=== PATIENT | female | born 1975 | race Caucasian/White ===

== ENCOUNTER → 2018-11-22 | Outpatient (CLI) | payer OTHER ==
[~2018-11-22] MED LIST: EVE1000C3 PO; FLAX10004 PO; GINK120T3 PO; GLUC1TAB91 PO; GUAI12009 PO; IBUP1TAB11 PO; MULT-672 PO; NAPR220C2 PO; TURM1POW PO; [UNRECOGNIZED DRUG - OTHER] PO; [UNRECOGNIZED DRUG - OTHER] PO
[2018-11-22 14:56] LABS: BASOPHILS # (AUTO) 0.01 x10^3/uL (0-0.1); BASOPHILS % (AUTO) 0 % (0-1); EOSINOPHILS # (AUTO) 0.09 x10^3/uL (0-0.4); EOSINOPHILS % (AUTO) 2 % (1-7); LYMPHOCYTES # (AUTO) 1.59 x10^3/uL (1-3.4); LYMPHOCYTES % (AUTO) 28 % (22-44); MD NO; MEAN CORPUSCULAR HGB CONC 33.2 g/dL (32.4-35.8); MEAN CORPUSCULAR VOLUME 90.5 fL (80-100); MONOCYTES # (AUTO) 0.45 x10^3/uL (0.2-0.8); MONOCYTES % (AUTO) 8 % (2-9); NEUTROPHILS % (AUTO) 63 % (42-75); PLATELET COUNT 264 x10^3/uL (130-400); RED BLOOD COUNT 4.88 x10^6/uL (3.82-5.3); RED CELL DISTRIBUTION WIDTH 13.5 % (9.6-15.2)
== END | disposition home or self-care (01) ==
LOC: STAR 13:49
PROVIDERS: ATTEND Surgery
DX: Z01.818 Encounter for other preprocedural examination (principal); K64.8 Other hemorrhoids
CPT/HCPCS: 36415; 85025

== ENCOUNTER 2018-11-28 05:56 | Day surgery (SDC) | payer OTHER ==
[2018-11-22 14:27] VITALS: BP 104/73
[~2018-11-28] VITALS: Ht 165.1 cm; Wt 80.5 kg
[2018-11-28] MEDS ORDERED: LACTATED RINGERS 1,000 ML IV SCH (06:50)
[2018-11-28 07:20] LABS: HCG UR SG 1.029 (1.003-1.030)
[2018-11-28] MEDS ORDERED: BUPIVACAINE LIPOSOME/PF 10ML INFIL ONE (07:27)
[2018-11-28] MEDS ORDERED: MIDAZOLAM 1 MG/ML, 2ML ONE (07:49)
[2018-11-28] MEDS ORDERED: FENTANYL PF 100 MCG/2ML ONE ×2 (07:50→09:11)
[2018-11-28] MEDS ORDERED: HYDROmorphone 2 MG/ML, 1ML IVPush PRN (08:00)
[2018-11-28] MEDS ORDERED: FENTANYL PF 100 MCG/2ML IV PRN (08:00)
[2018-11-28] MEDS ORDERED: ONDANSETRON 2MG/ML, 2ML IV PRN (08:00)
[2018-11-28] MEDS ORDERED: PROMETHAZINE 25 MG/ML, 1ML IV PRN (08:00)
[2018-11-28] MEDS ORDERED: ONDANSETRON ODT 8 MG PO PRN (08:00)
[2018-11-28] MEDS ORDERED: LORazepam 2 MG/ML, 1ML IVPush PRN (08:00)
[2018-11-28] MEDS ORDERED: ACETAMINOPHEN 325 MG TABLET PO PRN (08:00)
[2018-11-28] MEDS ORDERED: LIDOCAINE-MPF 2% ,5ML ONE (08:13)
[2018-11-28] MEDS ORDERED: NEOSTIGMINE 1 MG/ML, 10ML ONE (09:06)
[2018-11-28] MEDS ORDERED: SUCCINYLCHOLINE 20 MG/ML, 10ML ONE (09:06)
[2018-11-28] MEDS ORDERED: CEFAZOLIN 1,000 MG ONE (09:06)
[2018-11-28] MEDS ORDERED: ROCURONIUM 10MG/ML,5ML ONE (09:06)
[2018-11-28] MEDS ORDERED: PROPOFOL 10 MG/ML, 20ML ONE (09:06)
[2018-11-28] MEDS ORDERED: ONDANSETRON 2MG/ML, 2ML ONE (09:06)
[2018-11-28] MEDS ORDERED: GLYCOPYRROLATE 0.2MG/1ML, 5ML ONE (09:06)
[2018-11-28] MEDS ORDERED: DEXAMETHASONE 4 MG/ML, 1ML ONE (09:06)
[2018-11-28] MEDS ORDERED: ACETAMINOPHEN 650 MG/20.3 ML UDC ONE (09:11)
[2018-11-28] MEDS ORDERED: OXYcodone 5 MG/5 ML ORAL.SOL UDC ONE (09:11)
[2018-11-28] MEDS: OXYcodone 5 MG/5 ML ORAL.SOL UDC PO PRN ×2 (09:13→10:25)
== END 2018-11-28 11:30 | disposition home or self-care (01) ==
LOC: OUT 05:56
PROVIDERS: ATTEND Surgery
DX: K64.2 Third degree hemorrhoids (principal); K64.4 Residual hemorrhoidal skin tags; M19.90 Unspecified osteoarthritis, unspecified site; Z98.890 Other specified postprocedural states; Z91.048 Other nonmedicinal substance allergy status
CPT/HCPCS: 46260; 81025; 88304; J0330; J0690; J1100; J2250; J2405; J2704; J2710; J3010; J7120